=== PATIENT | female | born 1995 | race Caucasian/White ===

== ENCOUNTER 2023-09-09 16:21 | Outpatient (CLI) | payer BC, SELFPAY | END 2023-09-09 16:22 | disposition home or self-care (01) | PROVIDERS: PCP Internal Medicine; Visit Provider Internal Medicine | DX: R55 Syncope and collapse (principal) | CPT/HCPCS: 80053; 85379 ==

== ENCOUNTER 2025-05-03 17:14 | Outpatient (CLI) | payer BC, SELFPAY ==
--- NOTE | 2025-05-03 17:30 | CRLHL7_ITS ---
For Patients: As a result of the Century Cures Act, medical imaging exams and procedure reports are released immediately into your electronic medical record. You may view this report before your referring provider. If you have questions, please contact your health care provider. OB ULTRASOUND FIRST TRIMESTER INDICATION: Dating and viability. TECHNIQUE: Real time velazquez scale imaging of the fetus was performed. Transvaginal. LMP: 03/03/2025. MADHAVI by LMP: 12/08/2025. GA: 8 w, 5 d. Previous US: No. CRL: 1.9 cm. 8 w 3 d. MADHAVI: 12/10/2025. FHR: 171 BPM. Gestational sac: 2.8 cm. Appears within normal limits. Yolk sac: 3.1 mm. Appears within normal limits. Right ovary: Within normal limits. 3.1 x 1.4 x 1.4 cm. Left ovary: Within normal limits. 2.5 x 3.5 x 2.8 cm. CL. IMPRESSION: Single living intrauterine measuring 8 weeks 3 days with a sonographic due date 12/10/2025. Dameon Palmer M.D. Diagnostic Radiologist [email or web address] [email or web address]/al JR/Dictated by: Dameon Palmer MD @ 05/04/2025 6:53:00 AM (Electronically Signed)
== END 2025-05-03 17:15 | disposition home or self-care (01) ==
LOC: US 17:15
PROVIDERS: PCP Internal Medicine; Visit Provider Registered Nurse
DX: Z34.91 Encounter for supervision of normal pregnancy, unspecified, first trimester (principal); Z3A.08 8 weeks gestation of pregnancy
CPT/HCPCS: 76817; 83021; 86592; 86703; 86704; 86706; 86762; 86787; 86803; 86850; 86900; 86901; 87086; 87340; 87624; 88175

== ENCOUNTER 2025-05-03 17:57 | Outpatient (CLI) | payer BC, SELFPAY ==
[2025-05-06 02:46] LABS: HPV Source Cervical
[2025-05-10 08:48] LABS: Pap Test Digital Imaging Done
== END 2025-05-03 17:58 | disposition home or self-care (01) ==
PROVIDERS: PCP Internal Medicine; Visit Provider Advanced Practice Midwife
DX: Z34.91 Encounter for supervision of normal pregnancy, unspecified, first trimester (principal); Z3A.08 8 weeks gestation of pregnancy
CPT/HCPCS: 83020; 83021; 85660; 86592; 86703; 86704; 86706; 86762; 86787; 86803; 86850; 86900; 86901; 87086; 87340; 87624; 87625; 88141; 88142; 88175

== ENCOUNTER 2025-07-25 12:43 | Outpatient (CLI) | payer BC, SELFPAY ==
--- NOTE | 2025-07-25 13:00 | CRLHL7_ITS ---
For Patients: As a result of the Century Cures Act, medical imaging exams and procedure reports are released immediately into your electronic medical record. You may view this report before your referring provider. If you have questions, please contact your health care provider. OBSTETRICAL ULTRASOUND ??? ANATOMY SURVEY INDICATION: Supervision of normal . anatomy survey. CLINICAL HISTORY: LMP: 03/03/2025 MADHAVI by LMP: 12/08/2025 Gestational age: 20 weeks 4 days TECHNIQUE: Real-time velazquez-scale transabdominal and transvaginal obstetrical ultrasound was performed. Transvaginal imaging was performed for better visualization of the cervix and placenta. PREVIOUS ULTRASOUND: 05/03/2025. FINDINGS: position: Vertex, breech Cervix: Visualized Technique: Transabdominal and transvaginal Length of closed cervix: 4.0 cm Placenta position: Anterior Technique: Transabdominal and transvaginal Placenta tip to internal os: 1.3 cm Umbilical cord: Incomplete visualization Placental insertion: Incomplete visualization Amniotic fluid: 5.2 cm SDP (greater than/equal to 2 to less than 8 cm) ANATOMY SURVEY: Observed Structures Cerebellum: Yes; 2.1 cm, 21 weeks 2 days Cisterna magna: Yes; 3.4 mm Nuchal fold: Yes; 3.8 mm Lateral ventricle: Yes; 6.5 mm CSP: Yes Midline falx: Yes Choroid plexus: Yes Spine: Yes Stomach: Yes Abdominal cord insert: Incomplete visualization Urinary bladder: Yes Kidneys: Yes Diaphragm: Yes Nose/lips: Yes Orbital view: Yes Profile: Yes Upper extremities: Yes Lower extremities: Yes Hands: Yes Feet: Yes 4-chamber heart: Yes LVOT: Yes RVOT: Yes 3VV: Yes 3VTV: Yes BIOMETRY BPD: 4.8 cm, 20 weeks 4 days, 52% HC: 18.2 cm, 20 weeks 4 days, 42% AC: 14.8 cm, 20 weeks 1 day, 28% FL: 3.2 cm, 20 weeks 1 day, 26% FL/AC: 21.89% HC/AC ratio: 1.23 heart rate: 154 bpm age by this ultrasound: 20 weeks 4 days MADHAVI by this ultrasound: 12/08/2025 Estimated weight: 335.66 grams (0 pounds 12 ounces) Percentile by MADHAVI: 24% IMPRESSION: 1) Concordance of clinical and sonographic dating. 2) Transvaginal measurement of the cervix performed. The cervix is closed and measures 12.0 cm. 3) Incomplete visualization of the cord insertion into the placenta and abdomen. Remainder of the anatomic survey is normal. Short-term follow-up is recommended. 4) With transvaginal measurement, the anterior placental edge is located 1.3 cm from the internal cervical os. Follow-up in the third trimester is recommended. DAMEON ALMANZA M.D. Diagnostic Radiologist [email or web address] Transcribed: 4:[address]/Dictated by: Dameon Almanza MD @ 07/25/2025 2:59:00 PM (Electronically Signed)
== END 2025-07-25 12:44 | disposition home or self-care (01) ==
LOC: US 12:43
PROVIDERS: PCP Internal Medicine; Visit Provider Registered Nurse
DX: Z34.92 Encounter for supervision of normal pregnancy, unspecified, second trimester (principal); Z3A.20 20 weeks gestation of pregnancy
CPT/HCPCS: 76805; 76817

== ENCOUNTER 2025-08-19 07:55 | Outpatient (CLI) | payer BC, SELFPAY ==
--- NOTE | 2025-08-19 08:15 | CRLHL7_ITS ---
For Patients: As a result of the Century Cures Act, medical imaging exams and procedure reports are released immediately into your electronic medical record. You may view this report before your referring provider. If you have questions, please contact your health care provider. OB ULTRASOUND FOLLOW-UP CLINICAL HISTORY: Follow-up cord insertion and placenta. TECHNIQUE: Grayscale and color Doppler ultrasound of the uterus and ovaries from a transabdominal and transvaginal approach. Transvaginal ultrasound of the pelvis was performed to better evaluate the genitourinary organs such as the ovaries and/or endometrium. COMPARISON: 07/25/2025, 05/23/2025. FINDINGS: MADHAVI by LMP: 12/08/2025. GA: 24 weeks 1 day. Gestation: Single. Cervix: Visualized. TV measured 3.0 cm. positioning: Vertex. Amniotic Fluid: 6.7 cm SDP. Placenta: Technique: TA. Placenta position: Anterior. Dopplers: Heart Rate: 145 bpm. IMPRESSION: 1. Transvaginal evaluation of the cervix and relationship of the placenta to the internal cervical os performed. The cervix is closed and measures 3.1 cm. The anterior placental edge is located 3.3 cm from the internal cervical os. No funneling or endocervical fluid. 2. Central placental cord insertion is present. Normal abdominal cord insertion. Three vessel cord is present. Dameon Palmer M.D. Diagnostic Radiologist [email or web address] Transcribed: 10:24 am DW/Dictated by: Dameon Palmer MD @ 08/19/2025 9:40:00 AM (Electronically Signed)
== END 2025-08-19 07:56 | disposition home or self-care (01) ==
LOC: US 07:56
PROVIDERS: PCP Internal Medicine; Visit Provider Obstetrics & Gynecology
DX: Z36.89 Encounter for other specified antenatal screening (principal); O43.192 Other malformation of placenta, second trimester; Z3A.24 24 weeks gestation of pregnancy
CPT/HCPCS: 76816; 76817